=== PATIENT | female | born 1990 | race African-American/Black ===

== ENCOUNTER 2019-01-11 16:33 | Emergency (ER) | payer MEDICARE, MEDICAID ==
[~2019-01-11] VITALS: Ht 160 cm; Wt 106.6 kg
[2019-01-11 16:42] VITALS: BP 135/83
== END 2019-01-11 20:37 | disposition left against medical advice (07) ==
LOC: ER 16:41
DX: R10.2 Pelvic and perineal pain (principal); Z53.21 Procedure and treatment not carried out due to patient leaving prior to being seen by health care provider

== ENCOUNTER 2019-02-28 16:32 | Inpatient (IN) | payer MEDICARE, MEDICAID ==
[~2019-02-28] VITALS: Ht 154.9 cm; Wt 112.2 kg
[2019-02-28 17:28] LABS: Basophils # (auto) 0.1 uL; Eosinophils # (auto) 0.1 uL; Eosinophils % (auto) 0.8 % (0.0-7.0); Hematocrit 35.3 % (36.0-46.0); Hemoglobin 11.6 g/dL (12.2-16.2); Lymphocytes # (auto) 1.8 uL; Lymphocytes % (auto) 12.6 % (10.0-50.0); Mean Corpuscular Hemoglobin 33.3 pg (28.0-32.0); Mean Corpuscular Volume 100.8 fL (80.0-100.0); Monocytes # (auto) 0.8 uL; Monocytes % (auto) 5.9 % (0.0-12.0); Neutrophils # (auto) 11.1 uL; Neutrophils % (auto) 79.7 % (37.0-80.0); Platelet Count (auto) 140 10^3/uL (140-450); Red Cell Distribution Width 12.9 % (11.8-14.3); White Blood Cell 13.9 10^3/uL (4.4-10.8)
[2019-02-28 17:44] LABS: Alanine Aminotransferase 14 U/L (13-56); Albumin 2.7 g/dL (3.4-5.0); Anion Gap 9 (5-15); Aspartate Aminotransferase 33 U/L (15-37); BUN/Creatinine Ratio 9.8; Blood Urea Nitrogen 8 mg/dL (7-18); Calcium 8.6 mg/dL (8.5-10.1); Carbon Dioxide 22 mmol/L (21-32); Chloride 108 mmol/L (98-107); GFR African American 108 mL/min; GFR Non-African American 90 mL/min; Glucose 99 mg/dL (74-106); Magnesium 2.1 mg/dL (1.6-2.6); Potassium 3.7 mmol/L (3.5-5.1); Sodium 139 mmol/L (136-145)
[2019-02-28 17:48] LABS: Alkaline Phosphatase 56 U/L (45-117); Bilirubin, Total 0.2 mg/dL (0.2-1.0); Total Protein 7.3 g/dL (6.4-8.2)
[2019-02-28] MEDS ORDERED: IPRATROPIUM BROM 0.5 MG/2.5ML INH SOL HHN ONE (18:00)
[2019-02-28] MEDS ORDERED: methylPREDNISolone SOD SUCC 125 MG/2 ML VL IV ONE (18:00)
[2019-02-28] MEDS ORDERED: SODIUM CHLORIDE 0.9% 500 ML IV ONE (18:00)
[2019-02-28] MEDS ORDERED: ALBUTEROL SULF 2.5 MG/0.5ML(0.5%) NEB SOLN HHN ONE (18:00)
[2019-02-28] MEDS ORDERED: ACETAMINOPHEN 325 MG TAB PO ONE (18:15)
[2019-02-28] MEDS ORDERED: cefTRIAXone 1GM/50ML D5W 50 ML IV ONE (18:15)
[2019-02-28 18:30] LABS: Urine Bacteria NONE SEEN /hpf (None Seen); Urine Blood Negative /uL (Negative); Urine Mucus FEW (None Seen); Urine Specific Gravity 1.003 (1.001-1.035); Urine WBC <1 /hpf (0 - 5)
[2019-02-28] MEDS ORDERED: AZITHROMYCIN 500MG/ 250ML 250 ML IV ONE (21:30)
[2019-02-28] MEDS ORDERED: TEMAZEPAM 15 MG CAP PO PRN (21:30)
[2019-02-28] MEDS ORDERED: ACETAMINOPHEN 325 MG TAB PO PRN (21:30)
[2019-02-28] MEDS ORDERED: ALBUTEROL SULF 2.5 MG/0.5ML(0.5%) NEB SOLN NEB PRN (21:30)
[2019-02-28] MEDS ORDERED: ONDANSETRON HCL 4 MG/2 ML VIAL IV PRN (21:30)
[2019-02-28 21:44] VITALS: BP 98/63
[2019-02-28] MEDS: methylPREDNISolone SOD SUCC 125 MG/2 ML VL IV SCH (22:30)
[2019-02-28] MEDS: carBAMazepine 200 MG TAB PO SCH (22:31)
[2019-02-28] MEDS: TOPIRAMATE 25 MG TAB PO SCH (22:31)
[2019-02-28] MEDS: QUEtiapine FUMARATE 100 MG TAB PO SCH (22:31)
[2019-02-28] MEDS: FAMOTIDINE 20 MG TAB PO SCH (22:31)
[2019-02-28 22:58] LABS: BUN/Creatinine Ratio 10.8; Calcium 8.6 mg/dL (8.5-10.1)
[2019-02-28 23:15] VITALS: BP 106/56
--- NOTE | 2019-02-28 23:15 | NUR ---
[facility] admit from [facility] admitted to [facility] after hand off tool received. Patient oriented to primary RN, unit, room, bed, and unit policies regarding patient care and visiting hours. Patient weighed by bedscale and encouraged to call if they need something. All questions and concerns addressed, patient verbalized understanding. Admission information provided by grandmother/Nataly.
--- NOTE | 2019-02-28 23:20 | NUR ---
HOME MEDICATION Per patient, she lives in a custodial, however, unable to provide name of the board and care facility. Per grandmother, will call Dea from the [facility] to provide patient's list of home meds. Will endorse to am shift RN to follow up in the morning.
[2019-03-01 05:00] VITALS: BP 109/62
[2019-03-01] MEDS: LEVOTHYROXINE SODIUM 50 MCG TAB PO SCH (06:05)
[2019-03-01 06:22] LABS: Basophils # (auto) 0.1 uL; Basophils % (auto) 0.7 % (0.0-2.0); Eosinophils # (auto) 0 uL; Hematocrit 32.3 % (36.0-46.0); Hemoglobin 10.9 g/dL (12.2-16.2); Lymphocytes # (auto) 1.4 uL; Mean Corpuscular Hemoglobin 33.6 pg (28.0-32.0); Mean Corpuscular Hgb Conc. 33.7 g/dL (32.0-36.0); Mean Corpuscular Volume 99.8 fL (80.0-100.0); Monocytes # (auto) 0.6 uL; Monocytes % (auto) 5.1 % (0.0-12.0); Neutrophils # (auto) 9.7 uL; Neutrophils % (auto) 82.2 % (37.0-80.0); Nucleated Red Blood Cells % 0.1 %; Platelet Count (auto) 141 10^3/uL (140-450); Red Blood Cells 3.24 10^6/uL (4.0-5.20); Red Cell Distribution Width 12.8 % (11.8-14.3); White Blood Cell 11.9 10^3/uL (4.4-10.8)
--- NOTE | 2019-03-01 06:25 | NUR ---
Left hand 20 gauge dislodged. IV discontinued. Started new IV to left hand 22 gauge with good blood return x 1 attempt. Patient tolerated procedure well.
[2019-03-01 08:47] VITALS: BP 121/59
[2019-03-01] MEDS: cefTRIAXone 1GM/50ML D5W 50 ML IV SCH (09:06)
--- NOTE | 2019-03-01 09:57 | NUR ---
Respiratory note: ATTEMPTED TO ASSESS PATIENT FOR PRN BREATHING TX, PATIENT WAS BATHING AT THIS TIME AND REQUESTED FOR RT TO COME BACK AT A LATER TIME. WILL CONTINUE TO MONITOR AND ASSESS AT A LATER TIME.
[2019-03-01] MEDS: methylPREDNISolone SOD SUCC 125 MG/2 ML VL IV SCH (10:26)
[2019-03-01] MEDS: FAMOTIDINE 20 MG TAB PO SCH ×2 (10:27→21:30)
[2019-03-01] MEDS: QUEtiapine FUMARATE 100 MG TAB PO SCH ×2 (10:27→21:28)
[2019-03-01] MEDS: carBAMazepine 200 MG TAB PO SCH ×2 (10:27→21:30)
[2019-03-01] MEDS: AZITHROMYCIN 500MG/ 250ML 250 ML IV SCH (10:27)
[2019-03-01] MEDS: TOPIRAMATE 25 MG TAB PO SCH ×2 (10:28→21:28)
--- NOTE | 2019-03-01 10:29 | NUR ---
assessment Patient is a 28 year old female who is answering appropriately. Prior to admission patient lived at a custodial and functioned with assistance. Nataly patients caregiver is her POA. Patient to return home to custodial on discharge. Patient has no need for DME. Per ss consult additional community resources for eye glasses. I informed patient to make an appointment with counter clerk for glasses. Patient verbalized agreement. Nataly to transport patient home on discharge. [phone] Addendum: 03/01/19 at 1033 by Meghna Perales Amended: Links added.
[2019-03-01 12:35] VITALS: BP 123/67
--- NOTE | 2019-03-01 16:16 | NUR ---
Respiratory note: PATIENT RECEIVED BREATHING TX, DUE TO SHORTNESS OF BREATH. PATIENT IS AWARE THAT PHYSICIAN ORDERED HER SCHEDULED MED NEB TX. NO ADVERSE REACTION NOTED. WILL CONTINUE TO MONITOR PATIENT.
[2019-03-01 16:30] VITALS: BP 114/72
[2019-03-01] MEDS ORDERED: OMEG100078 PO (18:50)
[2019-03-01] MEDS ORDERED: LEVO125T7 PO (18:51)
[2019-03-01] MEDS ORDERED: TOPI50TA53 PO (18:52)
[2019-03-01] MEDS ORDERED: CARB100C3 PO (18:52)
[2019-03-01] MEDS ORDERED: QUET200T3 PO (18:55)
[2019-03-01] MEDS ORDERED: DIVA500T4 PO (18:55)
[2019-03-01] MEDS ORDERED: DIP25C PO (18:57)
[2019-03-01] MEDS ORDERED: PALI156I IM (19:01)
[2019-03-01] MEDS: ALBUTEROL SULF 2.5 MG/0.5ML(0.5%) NEB SOLN NEB SCH (19:05)
[2019-03-01] MEDS: IPRATROPIUM BROM 0.5 MG/2.5ML INH SOL NEB SCH (19:05)
--- NOTE | 2019-03-01 19:20 | NUR ---
Opening Shift Note Received report from Galindo MENJIVAR. Assumed care of patient, awake and alert. No S/S of distress/SOB or pain. Instructed on POC and to call for assist PRN, will continue to monitor for changes Q1hr and PRN.
[2019-03-01 20:00] VITALS: BP 96/52
[2019-03-01 22:00] VITALS: BP 96/52
[2019-03-02] MEDS: ALBUTEROL SULF 2.5 MG/0.5ML(0.5%) NEB SOLN NEB SCH ×3 (00:34→12:15)
[2019-03-02] MEDS: IPRATROPIUM BROM 0.5 MG/2.5ML INH SOL NEB SCH ×3 (00:34→12:15)
[2019-03-02 05:00] VITALS: BP 98/44
[2019-03-02] MEDS: LEVOTHYROXINE SODIUM 50 MCG TAB PO SCH (06:53)
[2019-03-02 09:00] VITALS: BP 133/64
[2019-03-02] MEDS: cefTRIAXone 1GM/50ML D5W 50 ML IV SCH (09:28)
[2019-03-02] MEDS ORDERED: FUROSEMIDE 40 MG TAB PO ONE (10:00)
[2019-03-02] MEDS: AZITHROMYCIN 500MG/ 250ML 250 ML IV SCH (10:25)
[2019-03-02] MEDS: carBAMazepine 200 MG TAB PO SCH (10:26)
[2019-03-02] MEDS: QUEtiapine FUMARATE 100 MG TAB PO SCH (10:26)
[2019-03-02] MEDS: FAMOTIDINE 20 MG TAB PO SCH (10:26)
[2019-03-02] MEDS: TOPIRAMATE 25 MG TAB PO SCH (10:27)
[2019-03-02 11:50] LABS: Alcohol, Urine < 3.0 mg/dL (0-5); Amphetamine Screen, Urine NEGATIVE (NEGATIVE); Barbiturate Scree,Urine NEGATIVE (NEGATIVE); Benzodiazephine Screen, Urine NEGATIVE (NEGATIVE); Cannabinoid Screen, Urine NEGATIVE (NEGATIVE); Cocaine Screen, Urine NEGATIVE (NEGATIVE); Opiate Scree,Urine NEGATIVE (NEGATIVE); Phencyclidine Screen, Urine NEGATIVE (NEGATIVE)
[2019-03-02 12:48] VITALS: BP 103/56
--- NOTE | 2019-03-02 14:15 | NUR ---
Patient refusing Echo. Educated patient about reason for Echo and importance of compliance. Will continue to monitor.
--- NOTE | 2019-03-02 17:52 | NUR ---
AMA Note [facility] states they want to leave the hospital Against Medical Advice (AMA) after refusal of Echocardiogram. Patient encouraged to stay for further treatment/stabilization. Carlos A Tavares notified of patient's wishes. Patient advised of the risks and benefits of leaving AMA. Called patient's grandmother and conservator, Nataly, to inform of patient's wishes. Patient's grandmother wanted patient to stay and follow medical advise. Informed charge nurse of patient's conservatorship and grandmother's wishes. Charge nurse informed that patient is alert and orientated and therefore cannot be held against their will. Called patient's grandmother to inform her of what the charge nurse stated. Grandmother agreed and talked with patient in attempt to reconsider. Patient still demanding to leave after talking with her grandmother and Nata (director of [facility] where patient lives). Patient verbalized understanding. Social Services Director from [facility] came to lease picker patient. IV catheter removed. Patient encouraged to return to the ER if symptoms do not improve or worsen.
[2019-03-02] MEDS ORDERED: FUROSEMIDE 40 MG TAB PO SCH (18:00)
== END 2019-03-02 17:52 | disposition left against medical advice (07) | DRG 871 ==
LOC: EDBD 16:32 → ER 16:50 → OVERFLOW 21:26 → WEST WING 23:15
PROVIDERS: ADMIT Nurse Practitioner; ATTEND Internal Medicine
DX: A41.9 Sepsis, unspecified organism (principal); E43 Unspecified severe protein-calorie malnutrition; J18.9 Pneumonia, unspecified organism; J90 Pleural effusion, not elsewhere classified; Z68.42 Body mass index [BMI] 45.0-49.9, adult; D64.9 Anemia, unspecified; F31.9 Bipolar disorder, unspecified; E66.01 Morbid (severe) obesity due to excess calories; F17.210 Nicotine dependence, cigarettes, uncomplicated; F20.9 Schizophrenia, unspecified; G47.30 Sleep apnea, unspecified; I10 Essential (primary) hypertension; G47.00 Insomnia, unspecified; Z53.21 Procedure and treatment not carried out due to patient leaving prior to being seen by health care provider; Z88.6 Allergy status to analgesic agent
CPT/HCPCS: 36415; 36600; 71045; 71046; 80048; 80053; 80307; 81001; 81025; 82805; 83605; 83735; 83880; 84443; 84484; 84702; 85025; 87040; 87081; 93005; 94640; 94644; 94761; 96365; 96367; 96375; 99291; G0378; J0696

== ENCOUNTER 2019-06-20 17:26 | Emergency (ER) | payer MEDICARE, MEDICAID ==
[~2019-06-20] VITALS: Ht 172.7 cm; Wt 81.6 kg
[~2019-06-20 17:26] MED LIST: CARB100C3 PO; DIP25C PO; DIVA500T4 PO; LEVO125T7 PO; OMEG100078 PO; PALI156I IM; QUET200T3 PO; TOPI50TA53 PO
[2019-06-20 17:34] VITALS: BP 113/68
== END 2019-06-20 23:44 | disposition left against medical advice (07) ==
LOC: ER 17:26 → EDBD 17:26 → ER 22:39
DX: R11.2 Nausea with vomiting, unspecified (principal); J20.9 Acute bronchitis, unspecified; Z53.21 Procedure and treatment not carried out due to patient leaving prior to being seen by health care provider

== ENCOUNTER 2019-11-11 12:42 | Emergency (ER) | payer MEDICARE, MEDICAID ==
[~2019-11-11] VITALS: Ht 152.4 cm; Wt 111.1 kg
[~2019-11-11 12:42] MED LIST changes: -QUET200T3 PO; +QUET200T4 PO
[2019-11-11 13:00] VITALS: BP 117/49
== END 2019-11-11 15:34 | disposition left against medical advice (07) ==
LOC: ER 12:42
DX: S93.401A Sprain of unspecified ligament of right ankle, initial encounter (principal); I10 Essential (primary) hypertension; F17.210 Nicotine dependence, cigarettes, uncomplicated; Z88.6 Allergy status to analgesic agent; Z79.899 Other long term (current) drug therapy; X50.1XXA Overexertion from prolonged static or awkward postures, initial encounter; Y93.89 Activity, other specified; Y92.89 Other specified places as the place of occurrence of the external cause; Y99.8 Other external cause status
CPT/HCPCS: 73610